=== PATIENT | female | born 1980 | race Caucasian/White ===

== ENCOUNTER 2017-08-05 06:45 | Inpatient (IN) | payer OTHER ==
[2017-08-05] VITALS (7 sets, daily range): BP systolic 95–110; BP diastolic 51–61
[~2017-08-05] VITALS: Ht 167.6 cm; Wt 72.1 kg
[~2017-08-05 06:45] MED LIST: ALAVERT PO; CLARITIN,ALAVAR10 MG PO; ENDOCET 5-3251 EACH PO; FISH OIL 1,0001 EA10 PO; IBUPROFEN800 MG PO; PRENATAL VITAM1 EAC1 PO; PROBIOTIC1 EAC1 PO
[2017-08-05] MEDS ORDERED: PERCOCET 5/31 TABLET PO (10:57)
[2017-08-05] MEDS ORDERED: IBUPROFEN800 MG PO (10:57)
[2017-08-06 03:00] VITALS: BP 92/58
[2017-08-06 06:32] LABS: EOSINOPHIL (%) 0.3 % (0-5); HEMATOCRIT 28.6 % (36.0-46.0); IMMATURE GRANULOCYTE (%) 0.6 % (0.0-0.7); INSTRUMENT ABS NEUTROPHIL CT 5.1 K/uL; LYMPHOCYTE COUNT 0.7 K/uL (1.0-2.8); MCH 30.9 PG (29.0-34.0); MCHC 33.6 G/DL (30.0-36.0); MEAN PLAT.VOLUME 10.7 uM^3 (9.5-12.4); MONOCYTE (%) 9.8 % (3-12); MONOCYTE COUNT 0.6 K/uL (0-0.8); NEUTROPHIL (%) 78.6 % (45-76); NEUTROPHIL COUNT 5.1 K/uL (1.8-6.4); PLATELET COUNT 113 K/uL (156-360); RBC DIS.WIDTH-CV 13.7 % (11.8-14.6); RBC DIS.WIDTH-SD 46.5 % (39-53); RED BLOOD COUNT 3.11 M/uL (3.80-5.20); WHITE BLOOD COUNT 6.5 K/uL (4.1-10.2)
[2017-08-06 06:53] VITALS: BP 82/46
[2017-08-06 10:34] VITALS: BP 94/52
[2017-08-06 15:08] VITALS: BP 102/59
[2017-08-06 19:00] VITALS: BP 91/54
[2017-08-07 00:09] VITALS: BP 98/55
[2017-08-07 03:00] VITALS: BP 79/45
== END 2017-08-07 13:00 | disposition home or self-care (01) | DRG 766 ==
LOC: 2WEST 06:45 → 2SOUTH 09:06 → 2WEST 08-07 13:00
PROVIDERS: Obstetrics & Gynecology Gynecology
PROC: 10D00Z1 Extraction of Products of Conception, Low, Open Approach (ICD-10-PCS; principal; 2017-08-05)
DX: O99.824 Streptococcus B carrier state complicating childbirth (principal); O34.211 Maternal care for low transverse scar from previous cesarean delivery; O99.354 Diseases of the nervous system complicating childbirth; J01.90 Acute sinusitis, unspecified; G43.909 Migraine, unspecified, not intractable, without status migrainosus; O99.52 Diseases of the respiratory system complicating childbirth; Z37.0 Single live birth; Z3A.40 40 weeks gestation of pregnancy; Z87.891 Personal history of nicotine dependence
CPT/HCPCS: 36415; 85025; 86850; 86900; 86901; J0131; J1885; J2274; J2405; J2590; J3010; J7120